=== PATIENT | male | born 1985 | race American Indian/Alaskan Native ===

== ENCOUNTER 2021-09-08 15:38 | Emergency (ER) | payer MEDICAID ==
[~2021-09-08] VITALS: Ht 165.1 cm; Wt 81.8 kg
[~2021-09-08 15:38] MED LIST: CLIN150C8 PO; NO HOME MEDS
[2021-09-08 17:08] VITALS: BP 111/68
== END 2021-09-08 17:11 | disposition home or self-care (01) ==
LOC: ER 15:39
DX: R55 Syncope and collapse (principal); M79.18 Myalgia, other site; R10.32 Left lower quadrant pain; R61 Generalized hyperhidrosis; Z87.442 Personal history of urinary calculi; Z72.89 Other problems related to lifestyle; Z88.0 Allergy status to penicillin; Z79.2 Long term (current) use of antibiotics
CPT/HCPCS: 93005; 99283

== ENCOUNTER 2024-06-08 18:21 | Emergency (ER) | payer SELFPAY ==
[~2024-06-08] VITALS: Ht 167.6 cm; Wt 90.0 kg
[~2024-06-08 18:21] MED LIST changes: +CLIN-214 PO; -CLIN150C8 PO
[2024-06-09 19:35] VITALS: BP 112/65; PULSE 95; RESP 16; TEMP 98.3; O2SAT 98
== END 2024-06-08 18:50 | disposition left against medical advice (07) ==
LOC: ER 18:21
DX: S05.92XA Unspecified injury of left eye and orbit, initial encounter (principal); R51.9 Headache, unspecified; Z53.21 Procedure and treatment not carried out due to patient leaving prior to being seen by health care provider; X58.XXXA Exposure to other specified factors, initial encounter; Y93.89 Activity, other specified; Y92.89 Other specified places as the place of occurrence of the external cause; Y99.8 Other external cause status